=== PATIENT | male | born 1955 | race Caucasian/White ===

== ENCOUNTER → 2020-08-27 08:53 | Outpatient (CLI) | payer BC, SELFPAY ==
--- NOTE | ~2020-08-27 | XR_ITS ---
EXAMINATION: XR thoracic spine 3V DATE: 08/27/2020 09:33 INDICATION: Dorsalgia, unspecified TECHNIQUE: AP, lateral and lateral swimmer's views of the thoracic spine were obtained. COMPARISON: 12/14/2010 FINDINGS: There is subtle S-shaped curvature of the spine. No fracture is identified. The vertebral b nataly heights are maintained. There is mild loss of intervertebral disc space height at multiple levels in the thoracic spine. Bone alignment is normal. IMPRESSION: 1. Moderate thoracic spondylosis without acute findings or significant interval change. Reviewed, dictated and finalized at location A. 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
--- NOTE | ~2020-08-27 | XR_ITS ---
EXAMINATION: XR ribs LT 2V w CXR 2V INDICATION: Left rib pain TECHNIQUE: A frontal view of the chest and 3 views of the left ribs were obtained. COMPARISON: None. FINDINGS: The lungs are free of acute opacities. There is no pleural effusion or pneumothorax. The ca rdiomediastinal silhouette is normal. No displaced rib fracture is identified. There is moderate thor acic spondylosis. IMPRESSION: 1. No acute cardiopulmonary abnormality or evidence of displaced rib fracture. Reviewed, dictated and finalized at location A. UCTION CONSULTANT
== END ==
PROVIDERS: PCP Family Medicine; Visit Provider Family Medicine
DX: M54.9 Dorsalgia, unspecified (principal); M47.894 Other spondylosis, thoracic region
CPT/HCPCS: 71046; 71100; 72072

== ENCOUNTER 2022-05-03 10:19 | Outpatient (CLI) | payer BC, SELFPAY ==
[2022-05-03 18:28] LABS: Hemoglobin A1C 8.5 % (<5.7)
[2022-05-03 18:49] LABS: Alanine Aminotransferase 24 U/L (6-50); Albumin Level 4.5 g/dL (3.5-5.1); Alkaline Phosphatase 60 U/L (38-126); Anion Gap 11 mmol/L (8-16); Aspartate Amino Transferase 23 U/L (17-59); Bilirubin,Total 0.9 mg/dL (0.2-1.3); Blood Urea Nitrogen 12 mg/dL (9-20); Calcium 9.5 mg/dL (8.4-10.2); Carbon Dioxide 22 mmol/L (22-30); Chloride 105 mmol/L (98-107); Estimated Glomerular Filt Rate > 60; Glucose 176 mg/dL (65-110); Potassium 4.2 mmol/L (3.4-5.0); Sodium 138 mmol/L (137-145)
== END 2022-05-03 10:20 | disposition home or self-care (01) ==
LOC: ANHGOSHLAB 10:23
PROVIDERS: PCP Family Medicine; Visit Provider Family Medicine
DX: E11.9 Type 2 diabetes mellitus without complications (principal); I10 Essential (primary) hypertension
CPT/HCPCS: 36415; 80053; 83036

== ENCOUNTER 2023-06-08 16:22 | Emergency (ER) | payer MEDICARE, SELFPAY ==
--- NOTE | ~2023-06-08 | CT_ITS ---
EXAMINATION: CT brain wo con DATE: 06/08/2023 18:26 INDICATION: Headache. Hypertension. TECHNIQUE: Computed tomography (CT) of the head was performed without intravenous contrast. The mA wa s adjusted according to patient size. Iterative reconstruction technique was employed. Exam dose: 68 1.00 mGy-cm total exam DLP. COMPARISON: 10/04/2017 CT brain FINDINGS: No intracranial mass lesion or hemorrhage or cerebrovascular accident, midline shift or mas s effect. Normal ventricular size. No subdural or epidural hematoma. There is calcification of the vertebral arteries, basilar artery and bilateral carotid siphon interna l carotid artery calcification. No fracture or bone destruction of the cranial vault. The mastoid air cells and included paranasal si nuses are normally developed and aerated. IMPRESSION: Cerebral atherosclerosis; no acute intracranial finding Reviewed, dictated and finalized at Location A. Reviewed, dictated and finalized at location A. 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
[2023-06-08 16:26] VITALS: BP 221/99; PULSE 83; RESP 20; TEMP 36.1; O2SAT 100
--- NOTE | 2023-06-08 16:31 | ECG_ITS ---
Measurements Intervals [place] Rate: 77 P: 2 IN: 171 QRS: 2 QRSD: 110 T: 30 QT: 377 QTc: 428 Interpretive Statements SINUS RHYTHM VOLTAGE CRITERIA FOR LVH BORDERLINE ST-T WAVE ABNORMALITY- ANTEROLAT/INF LEADS BASELINE ARTIFACT- II, III BORDERLINE ECG NO PREVIOUS ECG AVAILABLE FOR COMPARISON Electronically Signed On 06-08-2023 19:51:13 BOARD FINISHER by Juan Barba D.O.
[2023-06-08 16:55] LABS: Basophils Percent Auto 0.1 % (0.2-1.2); Eosinophils Absolute Auto 0.1 K/mm3 (0-0.3); Eosinophils Percent Auto 1.5 % (0-4.4); Hematocrit 41.3 % (42.0-52.0); Hemoglobin 14.1 g/dL (14.0-18.0); Immature Granulocyte Absolute 0.03 K/mm3 (0.00-0.031); Immature Granulocyte Percent A 0.4 % (0-0.5); Lymphocytes Absolute Auto 3.09 K/mm3 (0.9-3.2); Lymphocytes Percent Auto 39.2 % (18.3-44.2); Mean Corpuscular HGB Conc 34.1 g/dl (32-36); Mean Corpuscular Hemoglobin 31.8 pg (26-34); Mean Corpuscular Volume 93.2 fl (80-100); Mean Platelet Volume 9.4 fl (7.4-10.4); Monocytes Absolute Auto 0.5 K/mm3 (0.1-0.6); Monocytes Percent Auto 6.5 % (2.6-8.5); Neutrophils Absolute Auto 4.1 K/mm3 (1.3-6.7); Neutrophils Percent Auto 52.3 % (45.5-73.1); Platelet Count Result 236 k/mm3 (150-375); Red Blood Count 4.43 M/mm3 (4.6-6.20); Red Cell Distribution Width 12.2 % (11.5-14.5); White Blood Count 7.9 K/mm3 (4.5-10.0)
[2023-06-08 17:16] LABS: Alanine Aminotransferase 21 U/L (6-50); Albumin Level 4.3 g/dL (3.5-5.1); Alkaline Phosphatase 55 U/L (38-126); Anion Gap 11 mmol/L (8-16); Aspartate Amino Transferase 25 U/L (17-59); Bilirubin,Total 0.7 mg/dL (0.2-1.3); Blood Urea Nitrogen 11 mg/dL (9-20); Calcium 9.5 mg/dL (8.4-10.2); Carbon Dioxide 22 mmol/L (22-30); Chloride 106 mmol/L (98-107); Estimated CRCL calculation 108 ml/min; Estimated Glomerular Filt Rate > 60; Glucose 179 mg/dL (65-110); Sodium 139 mmol/L (137-145)
[2023-06-08 17:28] LABS: Troponin I < 0.012 ng/mL (0.000-0.034)
--- NOTE | 2023-06-08 17:49 | ED.RECABL ---
HPI - Recheck/Abnormal Lab/Rx General Chief Complaint: Recheck/Abnormal Lab/Rx Stated Complaint: high blood pressure Time Seen by Provider: 06/08/23 17:49 Source: patient Mode of arrival: ambulatory Limitations: no limitations History of Present Illness HPI narrative: This is a 67-year-old male that presents to the emergency department for elevated blood pressure reading. Reports he was not feeling well today with a headache. He took his blood pressure and it was quite elevated to 200 systolic. Reports he does not take his blood pressure medication daily. He does not believe he took it today. Denies visual changes, chest pain, shortness of breath, vomiting, or focal numbness or weakness. Related Data Home Medications Medication Instructions Recorded Confirmed amlodipine 5 mg tablet 5 mg PO DAILY 11/08/22 06/08/23 gabapentin 300 mg PO BID 06/08/23 06/08/23 lisinopril 10 1 tablet PO DAILY 06/08/23 06/08/23 mg-hydrochlorothiazide 12.5 mg tablet pregabalin 150 mg capsule (Lyrica) 150 mg PO HS 06/08/23 06/08/23 Allergies Allergy/AdvReac Type Severity Reaction Status Date / Time amoxicillin Allergy Unknown Rash Verified 06/08/23 18:02 Penicillins Allergy Unknown Rash Verified 06/08/23 18:02 hydrocodone AdvReac Intermediate Nausea Verified 06/08/23 18:02 Review of Systems Review of Systems: CONSTITUTIONAL: Denies fever EYES: Denies visual changes CARDIOVASCULAR: Denies chest pain, or edema. RESPIRATORY: Denies dyspnea. GASTROINTESTINAL: Denies vomiting NEUROLOGIC: Reports headache. Denies numbness, or weakness. All systems reviewed & are unremarkable except as noted in HPI and below PMFSH Past Medical History Medical History Chronic low back pain without sciatica Diabetes, polyneuropathy 2008 Dyslipidemia Essential (primary) hypertension Family hx of colon cancer H/O small bowel obstruction Hypogonadism in male Pituitary adenoma Type 2 diabetes mellitus with hyperglycemia, without long-term current use of insulin Vitamin B12 deficiency Family History Family History Father Colon cancer Other Carcinoma of colon Social History Social History Smoking status: Never smoker Second hand tobacco smoke exposure: No Alcohol intake: current Alcohol use details: consumes 2 Rum drinks weekly Substance use: never Substance use type: does not use Lack of Transportation: No Lack of Food: Never True Current Housing: I Have Housing Concerned About Future Housing: No Difficulty Paying Gas/Electric Bills: No Difficulty Paying for Meds: Decline to Answer Currently 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ion: Decline to Answer Difficulty w/ Childcare or Family Care: No Living arrangements: with family Occupation/Education: occupation Gender identity (if verbalized by the patient): Male Sexual Orientation (if Verbalized by the Patient): Straight or Heterosexual Agree to blood products: Yes Exam Narrative: GENERAL: Well-appearing, well-nourished, and in no acute distress. HEAD: Normocephalic, atraumatic. EYES: PERRLA and EOMI. ENT: Nares clear, no rhinorrhea or epistaxis. Mucous membranes moist. Oropharynx without tonsillar hypertrophy exudate or other lesions. Bilateral TMs pearly stack non-bulging NECK: Supple. No adenopathy or masses. CHEST: Clear to auscultation. No respiratory distress. No wheezes rales or rhonchi HEART: Regular rate and rhythm. No murmur heard. Normal peripheral pulses. EXTREMITIES: Normal range of motion. No edema. Strength equal in bilateral upper and lower extremities (5/5) SKIN: Warm, dry, no rash. NEURO: No focal deficits. Alert and oriented x3. Cranial nerves 2-12 grossly intact PSYCH: Normal mood and affect Course Course Emergency Course: Patient updated on workup and agrees with plan
[2023-06-08 18:01] VITALS: BP 196/97; PULSE 76; RESP 15; O2SAT 99
[2023-06-08] MEDS: amLODIPine BESYLATE 5 MG TABLET PO (18:43)
[2023-06-08] MEDS: lisinopriL 20 MG TABLET PO (18:43)
[2023-06-08 18:44] VITALS: BP 191/94; PULSE 74; RESP 21; O2SAT 99
[2023-06-08 19:37] VITALS: BP 172/92; PULSE 70; RESP 15; O2SAT 98
[2023-06-08] MEDS: ACETAMINOPHEN 500 MG TABLET 1000 MG PO (20:37)
[2023-06-08] MEDS: diphenhydrAMINE HCl CAP 25 MG CAPSULE PO (20:53)
[2023-06-08] MEDS: METOCLOPRAMIDE HCL 10 MG TABLET PO (20:53)
[2023-06-08 20:55] VITALS: BP 171/89; PULSE 73; RESP 17; O2SAT 99
== END 2023-06-08 21:29 | disposition home or self-care (01) ==
PROVIDERS: Emergency Medicine; Emergency Provider Physician Assistant; PCP Family Medicine
DX: I10 Essential (primary) hypertension (principal); T46.5X6A Underdosing of other antihypertensive drugs, initial encounter; Z91.128 Patient's intentional underdosing of medication regimen for other reason; E11.9 Type 2 diabetes mellitus without complications; E78.5 Hyperlipidemia, unspecified; E53.8 Deficiency of other specified B group vitamins; Z79.84 Long term (current) use of oral hypoglycemic drugs; I67.2 Cerebral atherosclerosis; R94.31 Abnormal electrocardiogram [ECG] [EKG]
CPT/HCPCS: 36415; 70450; 80053; 84484; 85025; 93005; 96374; 96375; 99284; A9270; J1200; J2765

== ENCOUNTER → 2023-07-24 12:28 | Outpatient (CLI) | payer MEDICARE, SELFPAY ==
--- NOTE | ~2023-07-24 | XR_ITS ---
XR lumbar spine min 4V DATE: 07/24/2023 12:52 INDICATION: Low back pain radiating down both legs TECHNIQUE: AP, lateral, coned lateral lumbosacral views, bilateral oblique views COMPARISON: None FINDINGS: Minimal lumbar dextroscoliosis. There is moderately prominent degenerative disease and prominent spurring throughout the lumbar and l umbosacral spine. No fracture or bone destruction, spondylolysis or spondylolisthesis is evident. The sacroiliac joints are intact. IMPRESSION: Moderately prominent degenerative disc disease throughout the lumbar spine Minimal dextroscoliosis Reviewed, dictated and finalized at location L. ITY ASSURANCE SPECIALIST IMPRESSION: Moderately prominent degenerative disc disease throughout the lumba r spine Minimal dextroscoliosis
== END ==
PROVIDERS: PCP Family Medicine; Visit Provider Family Medicine
DX: M54.50 Low back pain, unspecified (principal); M51.36 Other intervertebral disc degeneration, lumbar region
CPT/HCPCS: 72110

== ENCOUNTER 2023-08-31 08:00 | Outpatient (RCR) | payer MEDICARE, SELFPAY ==
--- NOTE | 2023-08-15 17:10 | OPREHPOC ---
Outpatient Therapy Plan of Care This is a Multidisciplinary Plan of Care that may contain components documented by all disciplines (PT, OT, and ST.) PT Problem 1 PT Problem #1 Knowledge Deficit PT Goal 1 Goal Pt to be IND with issued HEP Target Visit 8 PT Problem 2 PT Problem #2 Pain PT Goal 1 Goal Pt to report back pain no greater than 3/10 in the last week. Target Visit 8 PT Goal 2 Goal Pt to report 50% improvement in daily achy sensation Target Visit 8 PT Problem 3 PT Problem #3 Impaired Range of Motion PT Goal 1 Goal Pt to demonstrate no resistance with passive hip ROM Target Visit 8 PT Problem 4 PT Problem #4 Impaired Functional Mobil PT Goal 1 Goal Pt to be able to bend and grab golf ball out of hole. Target Visit 8 PT Goal 2 Goal Pt to be able to lift and carry 30lb from ground level without an increase in pain Target Visit 8
--- NOTE | 2023-08-15 17:10 | PTOPEVAL1 ---
Assessment and note entered by Fransico Vogel, PT, DPT Evaluation Information Assessment Status Evaluation Diagnosis low back pain Onset chronic Subjective Information Pt reports chronic low back pain over the last 25 years, he reports no back pain ~90% of the time. He reports daily tightness that feels limiting. He states he was standing upright about a month ago a felt a crunch and had debilitating spasms and had to stay in bed for about 2 days. He states this has happened before but is always random, a couple of times a year. He states the pain is centralized to his low back. 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 Reported Pain Level Pain Score 1: Self Report Assessment PT Clinical Summary Pradeep presents to therapy today for his initial evaluation with a diagnosis of chronic low back pain. Today he demonstrates decreased lumbar mobility into flexion and extension, decreased hip mobility dory, poor standing posture, and poor core strength. He reports decreased functional mobility d/t decreased mobility and fear avoidance behaviors. Skilled therapy services are indicated to address the deficits noted above, to improve lumbar mobility, and to promote improved movement mechanics. Plan of Care Interventions Electrical Stimulation,Gait Training,Hot Pack/Cold Pack,Manual Therapy,Mechanical Traction,Neuro Re- education,Patient/Caregiver Educati,Therapeutic Activities,Therapeutic Exercise PT Services Indicated Yes Treatment Frequency and 2x/wk for 8 visits Duration These treatments will address the objective and functional deficits as defined above. The patient will be advanced safely and appropriately in order for the patient to progress towards his/her prior level of function. Additional exercises will be introduced and as well as a comprehensive home exercise program upon discharge, if needed, ?to ensure carryover of functional gains achieved in the clinic. This treatment plan has been reviewed and agreement upon by the patient.
--- NOTE | 2023-08-22 08:13 | PCPTNOTE ---
Patient called to cancel this date due to conflicting appointment.
--- NOTE | 2023-09-05 09:58 | PCPTNOTE ---
Patient called to cancel all remaining appointments until reevaluation per request.
--- NOTE | 2023-09-25 14:16 | PCPTNOTE ---
Patient called & cancelled scheduled appointment this date due to having too much going on to commit to therapy. Called and LVM asking pt if he would like to be discharged or reschedule. Have not heard from him at this time.
--- NOTE | 2023-10-01 09:13 | PTOPDC ---
Assessment and note entered by Fransico Vogel, PT, DPT Evaluation Information Assessment Status Discharge - Pt Not Present Diagnosis low back pain Onset chronic Subjective Information Pt called and cancelled remaining appointments and reports he is too busy to focus on therapy at this time. Called and LVM asking if he wanted to reschedule for a later time, have not heard from pt since. Assessment PT Clinical Summary Pradeep completed 4 visits of skilled therapy from to 08/31/23. He will be discharged at this time. If he needs additional therapy at a later date he will need a new order.
== END 2023-10-01 10:06 | disposition home or self-care (01) ==
LOC: ANHGOSHPT 08:00
PROVIDERS: PCP Family Medicine; Visit Provider Family Medicine
DX: M54.50 Low back pain, unspecified (principal); M47.816 Spondylosis without myelopathy or radiculopathy, lumbar region; G89.29 Other chronic pain
CPT/HCPCS: 97016; 97110; 97161; 97530

== ENCOUNTER 2023-09-18 00:34 | Day surgery (SDC) | payer MEDICARE, SELFPAY ==
[2023-08-30 11:05] VITALS: BMI 40.4
--- NOTE | 2023-09-14 13:58 | SUR.PREOP ---
Patient called regarding upcoming procedure. Reviewed preop instructions, appointment times, and procedure prep.
--- NOTE | 2023-09-17 13:57 | PM.HPGS ---
History of Present Illness History of Present Illness Consent: Risks, benefits, and alternatives have been discussed and questions answered. Patient agrees to proceed with procedure. Chief complaint: neoplasm screening Narrative: Paul Faith is a 67 year old male referred for colon cancer screening. Review of Systems Review of Systems: All systems reviewed & are unremarkable except as noted in HPI and below PMFSH Past Medical History Medical History Chronic low back pain without sciatica Degenerative joint disease (DJD) of lumbar spine Diabetes, polyneuropathy 2008 Dyslipidemia Essential (primary) hypertension Family hx of colon cancer H/O small bowel obstruction Hypogonadism in male Pituitary adenoma Type 2 diabetes mellitus with hyperglycemia, without long-term current use of insulin Vitamin B12 deficiency Family History Family History Father Colon cancer Other Carcinoma of colon Social History Social History Smoking status: Never smoker Second hand tobacco smoke exposure: No Alcohol intake: current Drinks per week: 1 Alcohol use details: consumes 2 Rum drinks weekly Substance use: never Substance use type: does not use Lack of Transportation: No Lack of Food: Never True Current Housing: I Have Housing Concerned About Future Housing: No Difficulty Paying Gas/Electric Bills: No Difficulty Paying for Meds: Decline to Answer Currently 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ion: Decline to Answer Difficulty w/ Childcare or Family Care: No Living arrangements: alone Occupation/Education: occupation Gender identity (if verbalized by the patient): Male Sexual Orientation (if Verbalized by the Patient): Straight or Heterosexual Spiritual care concerns: No Agree to blood products: Yes Meds Home Medications and Allergies Home Medications Medication Instructions Recorded Confirmed Type flash glucose scanning reader #1 ea 05/03/22 08/30/23 Rx (FreeStyle Javad 2 [place]) flash glucose sensor (FreeStyle #1 ea 02/27/23 08/30/23 Rx Javad 2 Sensor kit) amlodipine 5 mg tablet 5 mg PO DAILY #90 tabs 07/24/23 08/30/23 Rx gabapentin 300 mg capsule 300 mg PO QID #360 caps 07/24/23 08/30/23 Rx lisinopril 20 1 tablet PO DAILY #90 tabs 07/24/23 08/30/23 Rx mg-hydrochlorothiazide 25 mg tablet simvastatin 5 mg tablet 5 mg PO DAILY #90 tabs 07/24/23 08/30/23 Rx sitagliptin phos 50 mg-metformin 2 tablet PO DAILY #180 tabs 07/24/23 08/30/23 Rx ER 1,000 mg tablet,extend rel 24h mp (Janumet XR) cyanocobalamin (vitamin B-12) 1,000 mcg IM WEEKLY #4 vials 08/08/23 08/30/23 Rx 1,000 mcg/mL injection solution ergocalciferol (vitamin D2) 1,250 1,250 mcg PO WEEKLY #12 caps 08/08/23 08/30/23 Rx mcg (50,000 unit) capsule insulin degludec 100 unit/mL (3 75 unit (0.75 mL) subcut DAILY #45 08/08/23 08/30/23 Rx mL) subcutaneous pen (Tresiba syringes FlexTouch U-100 insulin) pen needle, diabetic 31 gauge x #100 ea 08/09/23 08/30/23 Rx 5/16 (1st Tier Unifine Pentips) syringe with needle, safety 3 mL #10 ea 08/09/23 08/30/23 Rx 25 gauge x 1 (BD Integra Syringe) Allergies Allergy/AdvReac Type Severity Reaction Status Date / Time amoxicillin Allergy Unknown Rash Verified 08/30/23 11:03 Penicillins Allergy Unknown Rash Verified 08/30/23 11:03 hydrocodone AdvReac Intermediate Nausea Verified 08/30/23 11:03 Exam Const: General: alert Nutritional Appearance: obese Orientation/consciousness: patient oriented x3 Resp: Auscultation: clear to auscultation bilaterally Cardio: Rhythm: regular rhythm GI: GI Palp: Yes Soft to palpation and No Tenderness to palpation present (GI) Neuro: General: patient oriented x3 Assessment and Plan Assessment and plan (1) Family hx of colon cancer: Code(s): Z80
[2023-09-18 06:43] VITALS: BP 168/88; PULSE 89; RESP 18; TEMP 36.7; O2SAT 96; BMI 40.9
[2023-09-18] MEDS: LACTATED RINGERS 1,000 ML 150 ML IV CONT (07:12)
[2023-09-18 07:17] LABS: Glucose Point of Care 146 mg/dl (65-105)
--- NOTE | 2023-09-18 07:29 | WPDANESEPPF ---
Anes - Initial Pre Proc Eval Procedure: Operation Date: 09/18/23 08:00 Proposed Procedures p Screening Colonoscopy - Kieran Gallagher MD Date/Time: 09/18/23 07:29 Surgeon: Kieran Gallagher MD Pre Op Diagnosis: neoplasm screening Patient Data Age: 67 Gender: M Height: 1.88 m Weight: 144.7 kg Last Vital Signs Temp 98.1 F 09/18/23 06:43 Pulse 89 09/18/23 06:43 Resp 18 09/18/23 06:43 BP 168/88 H 09/18/23 06:43 Pulse Ox 96 09/18/23 06:43 O2 Del Method Room Air 09/18/23 06:43 Allergies Allergy/AdvReac Type Severity Reaction Status Date / Time amoxicillin Allergy Unknown Rash Verified 08/30/23 11:03 Penicillins Allergy Unknown Rash Verified 08/30/23 11:03 hydrocodone AdvReac Intermediate Nausea Verified 08/30/23 11:03 Home Medications Medication Instructions Recorded Confirmed Type flash glucose scanning reader #1 ea 05/03/22 08/30/23 Rx (FreeStyle Javad 2 [place]) flash glucose sensor (FreeStyle #1 ea 02/27/23 08/30/23 Rx Javad 2 Sensor kit) amlodipine 5 mg tablet 5 mg PO DAILY #90 tabs 07/24/23 08/30/23 Rx gabapentin 300 mg capsule 300 mg PO QID #360 caps 07/24/23 08/30/23 Rx lisinopril 20 1 tablet PO DAILY #90 tabs 07/24/23 08/30/23 Rx mg-hydrochlorothiazide 25 mg tablet simvastatin 5 mg tablet 5 mg PO DAILY #90 tabs 07/24/23 08/30/23 Rx sitagliptin phos 50 mg-metformin 2 tablet PO DAILY #180 tabs 07/24/23 08/30/23 Rx ER 1,000 mg tablet,extend rel 24h mp (Janumet XR) cyanocobalamin (vitamin B-12) 1,000 mcg IM WEEKLY #4 vials 08/08/23 08/30/23 Rx 1,000 mcg/mL injection solution ergocalciferol (vitamin D2) 1,250 1,250 mcg PO WEEKLY #12 caps 08/08/23 08/30/23 Rx mcg (50,000 unit) capsule insulin degludec 100 unit/mL (3 75 unit (0.75 mL) subcut DAILY #45 08/08/23 08/30/23 Rx mL) subcutaneous pen (Tresiba syringes FlexTouch U-100 insulin) pen needle, diabetic 31 gauge x #100 ea 08/09/23 08/30/23 Rx 5/16 (1st Tier Unifine Pentips) syringe with needle, safety 3 mL #10 ea 08/09/23 08/30/23 Rx 25 gauge x 1 (BD Integra Syringe) Laboratory Tests 09/18/23 07:15 POC Capillary Glucose 146 H mg/dl (65-105) Patient hx anesthesia problems: none Family hx anesthesia problems: none Results Review: All pre-operative results and documents have been reviewed as part of the pre-operative evaluation. [facility] Past Medical History Medical History (Updated 08/23/23 @ 14:59 by Adalberto Snell MD) Chronic low back pain without sciatica Degenerative joint disease (DJD) of lumbar spine Diabetes, polyneuropathy 2007 Dyslipidemia Essential (primary) hypertension Family hx of colon cancer H/O small bowel obstruction Hypogonadism in male Pituitary adenoma Type 2 diabetes mellitus with hyperglycemia, without long-term current use of insulin Vitamin B12 deficiency Family History Family History Father Colon cancer Other Carcinoma of colon Social History Social History Smoking status: Never smoker Second hand tobacco smoke exposure: No Alcohol intake: current Drinks per week: 1 Alcohol use details: consumes 2 Rum drinks weekly Substance use: never Substance use type: does not use Lack of Transportation: No Lack of Food: Never True Current Housing: I Have Housing Concerned About Future Housing: No Difficulty Paying Gas/Electric Bills: No Difficulty Paying for Meds: Decline to Answer Currently 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ion: Decline to Answer Difficulty w/ Childcare or Family Care: No Living arrangements: alone Occupation/Education: occupation Gender identity (if verbalized by the patient): Male Sexual Orientation (if Verbalized by the Patient): Straight or Heterosexual Spiritual care concerns: No Agree to blood products: Yes Anes - Eval Final PreProcedure Day of Procedure 09/17
[2023-09-18 08:07] VITALS: BP 111/68; PULSE 74; RESP 17; O2SAT 97
[2023-09-18 08:17] VITALS: BP 120/70; PULSE 78; RESP 17; O2SAT 97
[2023-09-18 08:27] VITALS: BP 132/73; PULSE 77; RESP 18; O2SAT 97
== END 2023-09-18 08:32 | disposition home or self-care (01) ==
PROVIDERS: PCP Family Medicine; Visit Provider Internal Medicine Gastroenterology
PROC: 0DJD8ZZ Inspection of Lower Intestinal Tract, Via Natural or Artificial Opening Endoscopic (ICD-10-PCS; CPT 45378; principal; 2023-09-18 08:00)
DX: Z12.11 Encounter for screening for malignant neoplasm of colon (principal); K57.30 Diverticulosis of large intestine without perforation or abscess without bleeding; K63.3 Ulcer of intestine; D12.2 Benign neoplasm of ascending colon; E11.42 Type 2 diabetes mellitus with diabetic polyneuropathy; E11.649 Type 2 diabetes mellitus with hypoglycemia without coma; E53.8 Deficiency of other specified B group vitamins; Z86.010 Personal history of colon polyps; F10.90 Alcohol use, unspecified, uncomplicated; Z79.84 Long term (current) use of oral hypoglycemic drugs; Z79.4 Long term (current) use of insulin; Z79.899 Other long term (current) drug therapy; Z80.0 Family history of malignant neoplasm of digestive organs; E66.01 Morbid (severe) obesity due to excess calories; Z68.41 Body mass index [BMI] 40.0-44.9, adult
CPT/HCPCS: 45380; 45385; 45381; 82948; 88305; J7120

== ENCOUNTER 2024-02-20 10:09 | Outpatient (CLI) | payer MEDICARE, SELFPAY ==
[2024-02-20 12:35] LABS: Basophils Percent Auto 0.3 % (0.2-1.2); Eosinophils Absolute Auto 0.1 K/mm3 (0-0.3); Eosinophils Percent Auto 1.9 % (0-4.4); Hematocrit 40.6 % (42.0-52.0); Hemoglobin 13.6 g/dL (14.0-18.0); Immature Granulocyte Absolute 0.02 K/mm3 (0.00-0.031); Immature Granulocyte Percent A 0.3 % (0-0.5); Mean Corpuscular HGB Conc 33.5 g/dl (32-36); Mean Corpuscular Volume 95.5 fl (80-100); Monocytes Absolute Auto 0.6 K/mm3 (0.1-0.6); Monocytes Percent Auto 7.8 % (2.6-8.5); Neutrophils Absolute Auto 3.9 K/mm3 (1.3-6.7); Neutrophils Percent Auto 52.7 % (45.5-73.1); Platelet Count Result 301 k/mm3 (150-375); Red Blood Count 4.25 M/mm3 (4.6-6.20); Red Cell Distribution Width 12.6 % (11.5-14.5); White Blood Count 7.3 K/mm3 (4.5-10.0)
[2024-02-20 13:12] LABS: Alanine Aminotransferase 22 U/L (6-50); Albumin Level 4.3 g/dL (3.5-5.1); Alkaline Phosphatase 54 U/L (38-126); Anion Gap 10 mmol/L (4-12); Aspartate Amino Transferase 34 U/L (17-59); Bilirubin,Total 0.9 mg/dL (0.2-1.3); Blood Urea Nitrogen 13 mg/dL (9-20); Calcium 9.3 mg/dL (8.4-10.2); Carbon Dioxide 25 mmol/L (22-30); Chloride 104 mmol/L (98-107); Cholesterol 171 mg/dL (0-200); Estimated Glomerular Filt Rate > 60; Glucose 152 mg/dL (65-110); HDL Direct 35 mg/dL; Potassium 4.6 mmol/L (3.4-5.0); Sodium 139 mmol/L (137-145); Triglycerides 106 mg/dL (<150)
[2024-02-20 13:23] LABS: LDL Cholesterol Direct 112 mg/dL
[2024-02-20 15:11] LABS: Hemoglobin A1C 9.1 % (<5.7)
[2024-02-20 15:17] LABS: Vitamin D 25 Hydroxy 53.6 ng/mL
== END 2024-02-20 10:10 | disposition home or self-care (01) ==
PROVIDERS: PCP Family Medicine; Visit Provider Nurse Practitioner Family
DX: E78.5 Hyperlipidemia, unspecified (principal); I10 Essential (primary) hypertension; E11.9 Type 2 diabetes mellitus without complications; E55.9 Vitamin D deficiency, unspecified
CPT/HCPCS: 36415; 80053; 80061; 82306; 83036; 85025

== ENCOUNTER 2024-03-27 07:54 | Outpatient (CLI) | payer MEDICARE, SELFPAY ==
--- NOTE | 2024-04-15 19:18 | WPDSLEEPSTUD ---
Sleep Study Date of Study: 03/27/24 Ordering Provider: Roverto Snell MD Interpreting Physician: Mildred Marrero DO Sleep Study Type: Split Polysomnogram Height: 1.88 m Weight: 144.242 kg Body Mass Index: 40.8 Neck Circumference (inches): 22 Peytona: 11 Reason for Sleep Study Frequent nighttime awakenings Sleep History The patient is a 68 year old male that had a sleep study ordered by his primary care physician for evaluation of sleep apnea. The patient frequently awakens from sleep short of breath. He occasionally awakens at night with cough. He frequently snores loudly enough that others complain. He with a has trouble sleeping when he has a cold. He frequently wakes up gasping for air throughout the night. He occasionally has breathing problems at night observed by himself or others. He denies sweating excessively at night. He denies having heart palpitations or irregular heartbeats during the night. Occasionally falls asleep during the day but never while driving a car he denies sleep paralysis and cataplexy. He rarely has trouble at school or work due to sleepiness score 0 he rarely experiences vivid dreamlike scenes upon awakening or falling asleep year he denies feeling afraid of going to sleep. He occasionally has nightmares and occasionally remembers his dreams. He rarely has thoughts racing through his mind. He denies feeling sad, depressed or anxious. He denies having muscular tension. He denies noticing parts of his body jerk. He denies kicking during the night. He frequently has aching feelings in his legs and constantly experiences leg pain during the night. He denies with waking up in the morning with jaw pain. He is occasionally bothered by pain during the day and is constantly bothered by pain during the night. He frequently wakes up feeling stiff in the morning. He rarely wakes up with sore enough of will do occasionally wakes up with pain in his spine and joints. The patient goes to bed between 7:30-8 a.m. on both weekdays and weekends. It takes him a few minutes to fall asleep. He wakes up 6-7 times throughout the night for unknown reasons and the amount of time it takes for him to fall back asleep is variable. He wakes up at 7:00 a.m. on both weekdays and weekends. He typically stays in bed for 15 minutes after waking up in the morning a her are of unknown. He denies consuming any caffeinated beverages and I the bedtime. He denies and on physical exercise before bedtime. He denies reading before falling asleep. He will watch television before falling asleep. He seldom takes naps in the afternoon or the evening. He denies consuming caffeinated beverages during the day. He consumes 2 alcoholic beverages per week. He denies tobacco and recreational drug use. [facility] Past Medical History Medical History Chronic low back pain without sciatica Degenerative joint disease (DJD) of lumbar spine Dyslipidemia Essential (primary) hypertension Family hx of colon cancer H/O small bowel obstruction Hypogonadism in male Pituitary adenoma Type 2 diabetes mellitus with hyperglycemia, without long-term current use of insulin Vitamin B12 deficiency Family History Family History Father Colon cancer Other Carcinoma of colon Social History Social History Smoking status: Never smoker Second hand tobacco smoke exposure: No Alcohol intake: current Drinks per week: 1 Alcohol use details: consumes 2 Rum drinks weekly Substance use: never Substance use type: does not use Lack of Transportation: No Lack of Food: Never True Current Housing: I Have Housing Concerned About Future Housing: No Difficulty Paying Gas/Electric Bills: No Difficulty Paying for Meds: Decline to Answer Currently 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
[2024-04-15 19:19] VITALS: BMI 40.8
== END 2024-03-28 06:27 | disposition home or self-care (01) ==
PROVIDERS: PCP Family Medicine; Visit Provider Family Medicine
DX: R40.0 Somnolence (principal); R29.818 Other symptoms and signs involving the nervous system; G47.33 Obstructive sleep apnea (adult) (pediatric)
CPT/HCPCS: 95811

== ENCOUNTER 2024-05-12 09:54 | Outpatient (CLI) | payer MEDICARE, SELFPAY ==
[2024-05-12 15:08] LABS: Hemoglobin A1C 9.7 % (<5.7)
== END 2024-05-12 09:55 | disposition home or self-care (01) ==
LOC: ANHGOSHLAB 09:55
PROVIDERS: PCP Family Medicine; Visit Provider Nurse Practitioner Family
DX: E11.9 Type 2 diabetes mellitus without complications (principal); G25.81 Restless legs syndrome
CPT/HCPCS: 36415; 82728; 83036

== ENCOUNTER 2024-06-20 10:14 | Outpatient (CLI) | payer MEDICARE, SELFPAY ==
[2024-06-20 14:37] LABS: Basophils Percent Auto 0.2 % (0.2-1.2); Eosinophils Absolute Auto 0.2 K/mm3 (0-0.3); Eosinophils Percent Auto 2.5 % (0-4.4); Hematocrit 43.5 % (42.0-52.0); Hemoglobin 14.5 g/dL (14.0-18.0); Immature Granulocyte Absolute 0.02 K/mm3 (0.00-0.031); Immature Granulocyte Percent A 0.2 % (0-0.5); Lymphocytes Absolute Auto 3.01 K/mm3 (0.9-3.2); Lymphocytes Percent Auto 35.6 % (18.3-44.2); Mean Corpuscular HGB Conc 33.3 g/dl (32-36); Mean Corpuscular Hemoglobin 31.7 pg (26-34); Mean Platelet Volume 10.1 fl (7.4-10.4); Monocytes Absolute Auto 0.7 K/mm3 (0.1-0.6); Monocytes Percent Auto 8.5 % (2.6-8.5); Neutrophils Absolute Auto 4.5 K/mm3 (1.3-6.7); Platelet Count Result 273 k/mm3 (150-375); Red Blood Count 4.58 M/mm3 (4.6-6.20); Red Cell Distribution Width 12.3 % (11.5-14.5); White Blood Count 8.5 K/mm3 (4.5-10.0)
[2024-06-20 15:17] LABS: Alanine Aminotransferase 23 U/L (6-50); Albumin Level 4.6 g/dL (3.5-5.1); Alkaline Phosphatase 52 U/L (38-126); Anion Gap 5 mmol/L (4-12); Aspartate Amino Transferase 37 U/L (17-59); Bilirubin,Total 0.9 mg/dL (0.2-1.3); Blood Urea Nitrogen 16 mg/dL (9-20); Calcium 9.5 mg/dL (8.4-10.2); Carbon Dioxide 27 mmol/L (22-30); Chloride 104 mmol/L (98-107); Cholesterol 167 mg/dL (0-200); Estimated Glomerular Filt Rate > 60; Glucose 253 mg/dL (65-110); HDL Direct 38 mg/dL; Potassium 4.8 mmol/L (3.4-5.0); Sodium 136 mmol/L (137-145); Triglycerides 123 mg/dL (<150)
[2024-06-20 15:28] LABS: LDL Cholesterol Direct 98 mg/dL
[2024-06-20 15:43] LABS: Hemoglobin A1C 9.9 % (<5.7)
== END 2024-06-20 10:15 | disposition home or self-care (01) ==
LOC: ANHGOSHLAB 10:15
PROVIDERS: PCP Family Medicine; Visit Provider Nurse Practitioner Family
DX: E78.5 Hyperlipidemia, unspecified (principal); I10 Essential (primary) hypertension; E11.40 Type 2 diabetes mellitus with diabetic neuropathy, unspecified; G25.81 Restless legs syndrome; G47.33 Obstructive sleep apnea (adult) (pediatric); M25.511 Pain in right shoulder
CPT/HCPCS: 36415; 80053; 80061; 83036; 85025

== ENCOUNTER 2024-07-02 09:09 | Outpatient (CLI) | payer MEDICARE, SELFPAY ==
--- NOTE | ~2024-07-02 | US_ITS ---
EXAMINATION: US arterial ankle brachial ind DATE: 07/02/2024 10:37 INDICATION: Other specified symptoms and signs involving the circulatory system. Claudication. TECHNIQUE: Segmental pressures and plethysmographic and Doppler waveforms of the brachial and lower e xtremity arteries were obtained. COMPARISON: None. FINDINGS: Right and left brachial artery pressures of 143 mm Hg and 157 mm Hg, respectively, are concordant (no rmal difference <= 30 mmHg). The right ankle-brachial index (ASHANTI) is 1.03 (normal >= 0.9-1.0). The right great toe-brachial index (TBI) is 0.55 (normal >= 0.65). Arterial Doppler waveforms are biphasic with brisk systolic upstrokes at both right posterior tibial and dorsalis pedis arteries. The left ASHANTI is 1.19. The left TBI is 0.55. Arterial Doppler waveforms are monophasic at the left pos terior tibial artery and biphasic at the left dorsalis pedis artery, both with brisk systolic upstrok es. IMPRESSION: 1. Mild arterial occlusive disease to bilateral lower limbs with normal bilateral ABIs but mildly dec reased bilateral TBIs. Reviewed, dictated and finalized at location A. MENTATION WRITER IMPRESSION: 1. Mild arterial occlusive disease to bilateral lower limbs with normal bilater al ABIs but mildly decreased bilateral TBIs.
== END 2024-07-02 09:10 | disposition home or self-care (01) ==
PROVIDERS: PCP Family Medicine; Visit Provider Nurse Practitioner Family
DX: R09.89 Other specified symptoms and signs involving the circulatory and respiratory systems (principal); I73.9 Peripheral vascular disease, unspecified
CPT/HCPCS: 93922

== ENCOUNTER 2024-08-04 16:19 | Outpatient (CLI) | payer MEDICARE, SELFPAY ==
[2024-08-04 17:25] LABS: Hemoglobin A1C 9.9 % (<5.7)
--- OUTSIDE RECORDS SUMMARY | 2024-08-07 14:44 | XMS_ITS | Encounter Summary ---
Author Organization [facility] Address [address] [facility] Attn: [place] [address] Care Team Providers Care Magnetic Locater Name Role Phone Unavailable Primary Care Provider Unavailabl e Encounter Details Date Type Department Care Team (Late st Contact Info) Description 02/04/1991 Outpatient Historical Roel Medrano MD [address] 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
--- OUTSIDE RECORDS SUMMARY | 2024-08-07 14:44 | XMS_ITS | Encounter Summary ---
Author Organization [facility] Address [address] [facility] Attn: Epic [place] [address] Care Team Providers Care Accredited Legal Secretary Name Role Phone Unavailable Primary Care Provider Unavailabl e Encounter Details Date Type Department Care Team (Late st Contact Info) Description 11/07/1991 Outpatient Historical Roel Medrano MD [address] 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
--- OUTSIDE RECORDS SUMMARY | 2024-08-07 14:44 | XMS_ITS | Encounter Summary ---
Author Organization [facility] Address [address] [facility] Attn: Epic [place] [address] Care Team Providers Care Patternmaker Plaster And Plastic Name Role Phone Unavailable Primary Care Provider Unavailabl e Encounter Details Date Type Department Care Team (Late st Contact Info) Description 09/26/1993 Outpatient Historical Roel Medrano MD [address] [facility] [address] [place] [address] Social History Tobacco Use Types Packs/Day Years Used Date Smoking Tobacco: Never Assessed Sex and Gender Information Value Date Recorded Sex Assigned at Not on file Legal Sex Male 5:24 AM CIRCULATION REPRESENTATIVE Gender Identity Not on file Sexual Orientation Not on file documented as of this encounter Plan of Treatment Not on file documented as of this encounter Visit Diagnoses Not on filedocumented in this encounter
--- OUTSIDE RECORDS SUMMARY | 2024-08-07 14:44 | XMS_ITS | Encounter Summary ---
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
--- OUTSIDE RECORDS SUMMARY | 2024-08-07 14:44 | XMS_ITS | Clinical Summary ---
Author Organization [facility] Address [facility] [facility] [address] [place] [address] Care Team Providers Care Vault Service Mechanic Name Role Phone Greg Sen SIEBEL DEVELOPER Primary Care Provider [phone] Encounters Date Type Department Care Team Description 07/25/2024 2:23 PM PUNCHBOARD FILLING MACHINE OPERATOR - 07/25/2024 11:59 PM PUNCHBOARD FILLING MACHINE OPERATOR Hospital Encounter [facility] [address] [place] [address] Greg Sen FNP Discharge Disposition: Home or Self Care (Routine Discharge) 07/25/2024 Travel from Last 3 Months Social History Tobacco Use Types Packs/Day Years Used Date Smoking Tobacco: Never Assessed Comments Unknown Sex and Gender Information Value Date Recorded Sex Assigned at Not on file Legal Sex Unknown 06/25/2024 1:42 PM PUNCHBOARD FILLING MACHINE OPERATOR Gender Identity Not on file Sexual Orientation Not on file Plan of Treatment Health Maintenance Due Date Last Done Comments Colorectal Cancer Screening Colonoscopy (10 Years) 1957 Hepatitis C 12/26/1975 Mammogram Screening 1997 Zoster Vaccines (1 of 2) 12/26/2007 Annual Medicare Wellness Visit 2022 Dexa Scan (General) 2022 Pneumococcal Vaccine: 65+ Years (1 of 1 - PCV) 2022 COVID-19 Vaccine (3 - 2023-2 5 season) 2024 11/02/2020, 10/11/2020 Influenza Adult (#1) 2024 07/24/2023, 09/24/2019 RSV Immunization or 60+ Years (1 - 1-dose 75+ series) 2032 DTaP, Tdap and Td Vaccines ( 2 - Td or Tdap) 01/06/2034 01/07/2024 Meningococcal Vaccine Aged Out No rogelio salas eligible based on patient's age to complete this topic RSV Immunizations Under 20 Months Aged Out No longer eligible b ased on patient's age to complete this topic Procedures Procedure Name Priority Date/Time Associated Diagnosis Comments MRI SHOULDER RT WO CON Routine 07/25/2024 3:02 PM PUNCHBOARD FILLING MACHINE OPERATOR Pain in right shoulder from Last 3 Months Results * MRI SHOULDER RT WO CON (07/25/2024 3:02 PM PUNCHBOARD FILLING MACHINE OPERATOR) Anatomical Region Laterality Modality Shoulder Magnetic Resonan ce 07/25/2024 3:20 PM PUNCHBOARD FILLING MACHINE OPERATOR Impressions 07/25/2024 3:38 PM PUNCHBOARD FILLING MACHINE OPERATOR IMPRESSION: Full-thickness tear at the insertion of supraspinatus measures 14 mm in AP dimension, 13 mm of retraction. This communicates with a partial articular sided tear of posterior infraspinatus insertion which measures 7 x 4 mm, and involves approximately 50% tendon thickness. Small partial tear at the superior bundle insertion of subscapularis. Long head biceps perched medially at the groove entrance. Associated tendinosis. Findings concerning for subacromial impingement, including spurring and narrowing and moderate bursitis. Mild supraspinatus and infraspinatus atrophy. Ordered By: GREG SEN Interpreted By: Joshua Ga, 07/25/2024 3:20 PM Narrative 07/25/2024 3:38 PM PUNCHBOARD FILLING MACHINE OPERATOR [facility] [place] [address] EXAMINATION: MRI RIGHT SHOULDER WITHOUT CONTRAST EXAM DATE: 07/25/2024 2:40 PM REASON FOR EXAM: ??pain in right shoulder ? Pain and decreased range of motion COMPARISON: None TECHNIQUE: Multisequence multiplanar imaging of the shoulder without intravenous contrast. FINDINGS: Moderate soft tissue swelling surrounding the joint. ROTATOR CUFF: Mild supraspinatus and infraspinatus atrophy. Full-thickness tear at the insertion of supraspinatus measures 14 mm in AP dimension, 13 mm of retraction. This communicates with a partial articular sided tear of posterior infraspinatus insertion which measures 7 mm in AP dimension, 14 mm medial to lateral, and involves approximately 50% tendon thickness. Small partial tear at the superior bundle insertion of subscapularis. BICEPS: Long head biceps perched medially at the groove entrance. Associated tendinosis. LABRUM: No evidence of labral tear. ACROMIOCLAVICULAR: Acromioclavicular joint osteoarthritis. Subacromial spurring and narrowing and moderate bursitis. GLENOHUMERAL: Small joint effusion. No definite full-thickness cartilage loss. BONE MARROW: No suspicious lesion or fracture. Procedure Note Joshua Ga MD - 07/25/2024 [id number] [place] [address] EXAMINATION: MRI RIGHT SHOULDER WITHOUT CONTRAST EXAM DATE: 07/25/2024 2:40 PM REASON FOR EXAM: pain in right shoulder Pain and decreased range of motion COMPARISON: None TECHNIQUE: Multisequence multiplanar imaging of the shoulder withoutintravenous contrast. FINDINGS: Moderate soft tissue swelling surrounding the joint. ROTATOR CUFF: Mild supraspinatus and infraspinatus atrophy. Full-thickness tear at the insertion of supraspinatus measures 14 mm in APdimension, 13 mm of retraction. This communicates with a partial articular sided tear of posteriorinfraspinatus insertion which measures 7 mm in AP dimension, 14 mm medialto lateral, and involves approximately 50% tendon thickness. Small partial tear at the superior bundle insertion of subscapularis. BICEPS: Long head biceps perched medially at the groove entrance. Associatedtendinosis. LABRUM: No evidence of labral tear. ACROMIOCLAVICULAR: Acromioclavicular joint osteoarthritis. Subacromial spurring and narrowingand moderate bursitis. GLENOHUMERAL: Small joint effusion. No definite full-thickness cartilage loss. BONE MARROW: No suspicious lesion or fracture. IMPRESSION: Full-thickness tear at the insertion of supraspinatus measures 14 mm in APdimension, 13 mm of retraction. This communicates with a partial articular sided tear of posteriorinfraspinatus insertion which measures 7 x 4 mm, and involvesapproximately 50% tendon thickness. Small partial tear at the superior bundle insertion of subscapularis. Longhead biceps perched medially at the groove entrance. Associatedtendinosis. Findings concerning for subacromial impingement, including spurring andnarrowing and moderate bursitis. Mild supraspinatus and infraspinatus atrophy. Ordered By: GREG SEN Interpreted By: Joshua Ga, 07/25/2024 3:20 PM Greg Sen SIEBEL DEVELOPER MRI Final Result from Last 3 Months Insurance [facility] [address] Care Teams Vault Service Mechanic Relationship Specialty Start Date End Date Greg Sen FNP [facility] [facility] [place] [address] PCP - General Nurse Practitioner Family 06/26/24
--- OUTSIDE RECORDS SUMMARY | 2024-08-07 14:44 | XMS_ITS | Encounter Summary ---
Author Organization [facility] Address [address] [facility] Attn: [place] [address] Care Team Providers Care Forest Fire Specialist Supervisor Name Role Phone Unavailable Primary Care Provider Unavailabl e Encounter Details Date Type Department Care Team (Late st Contact Info) Description 12/10/1990 Outpatient Historical Roel Medrano MD [address] [facility] [address] [place] [address] Social History Tobacco Use Types Packs/Day Years Used Date Smoking Tobacco: Never Assessed Sex and Gender Information Value Date Recorded Sex Assigned at Not on file Legal Sex Male 5:24 AM PLANT MAINTENANCE MECHANIC Gender Identity Not on file Sexual Orientation Not on file documented as of this encounter Plan of Treatment Not on file documented as of this encounter Visit Diagnoses Not on filedocumented in this encounter
--- OUTSIDE RECORDS SUMMARY | 2024-08-07 14:44 | XMS_ITS | Encounter Summary ---
Author Organization [employer] Address [address] [place] [address] Care Team Providers Care Kettle Loader Name Role Phone Unavailable Primary Care Provider Unavailabl e Encounter Details Date Type Department Care Team (Late st Contact Info) Description 03/25/1999 Outpatient Historical [facility] [place] Social History Tobacco Use Types Packs/Day Years Used Date Smoking Tobacco: Never Assessed Sex and Gender Information Value Date Recorded Sex Assigned at Not on file Legal Sex Male 5:24 AM SAFETY CLOTHING AND EQUIPMENT DEVELOPER Gender Identity Not on file Sexual Orientation Not on file documented as of this encounter Plan of Treatment Not on file documented as of this encounter Visit Diagnoses Not on filedocumented in this encounter
--- OUTSIDE RECORDS SUMMARY | 2024-08-07 14:44 | XMS_ITS | Encounter Summary ---
Author Organization [facility] Address [address] [facility] Attn: [place] [address] Care Team Providers Care Hydro Operator Name Role Phone Unavailable Primary Care Provider Unavailabl e Encounter Details Date Type Department Care Team (Late st Contact Info) Description 11/07/1990 Outpatient Historical Roel Medrano MD [address] 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
--- OUTSIDE RECORDS SUMMARY | 2024-08-07 14:44 | XMS_ITS | Continuity of Care Document ---
Author Organization [facility] Address [address] [facility] [address] [place] [address] Phone Care Team Providers Care Process Mechanic Name Role Phone Ryan Urbano DO Unavailable Unavailable Advance Directives Directive Yes / No Effective Date File Name No Information Encounters Encounter Description Practice Location Reason(s) For Visit Diagnoses Date Provider Providers Copied on Encounter [facility], [address], [place], [place], [id number], [place] tel:[phone] [facility] No Information Sundeep Chish[address]m. [address] [place], [address], [place]. tel: [phone] Family History Family Member Type Diagnosis Age At Onset No Information Payers Payer name Insurance type Covered democrat ID Authoriza tion(s) No Information Social History Type Description Quantity Date Captured Comments Sex Male Smoking Status No Information Chief Complaint And Reason For Visit No Information Reason For Referral Reason For Referral No Information History Of Present Illness Encounter Date Complaint History Of Prese nt Illness No Information Functional Status Date Functional Assessmen t No Information Instructions Date Instruction Additional Infor mation No Information Assessments Type Assessment Date No Information Patient Care Teams Name Effective Dates (start - stop) Status Members No Information
--- OUTSIDE RECORDS SUMMARY | 2024-08-07 14:44 | XMS_ITS | Encounter Summary ---
Author Organization [employer] Address [address] [place] [address] Care Team Providers Care Substation Engineer Name Role Phone Unavailable Primary Care Provider Unavailabl e Encounter Details Date Type Department Care Team (Latest Contact Info) Description 01/30/2000 Outpatient Historical [facility] MRI DEPT Roel Medrano MD [address] [facility] 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
--- OUTSIDE RECORDS SUMMARY | 2024-08-07 14:44 | XMS_ITS | Clinical Summary ---
Author Organization [facility] Address [address] [facility] Attn: Epic Prelude ADT [place] [address] Care Team Providers Care Renewable Energy Division Manager Name Role Phone Unavailable Primary Care Provider Unavailabl e Allergies Active Allergy Reactions Criticality Noted Date Comments Penicillins Rash Low 01/07/2024 FLUSHING, TURNS RED Encounters Date Type Department Care Team Description 07/29/2024 External Device Data STL ABSTRACTION Provider, Abstract 05/14/2024 External Device Data STL ABSTRACTION Provider, Abstract from Last 3 Months Immunizations Immunization Administration Dates Next Due (ADACEL/BOOSTRIX)(10 YR UP) TDAP VACCINE, 0.5ML, IM 01/07/2024 Social History Tobacco Use Types Packs/Day Years Used Date Smoking Tobacco: Never Assessed Sex and Gender Information Value Date Recorded Sex Assigned at Not on file 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 Gender Identity Not on file Sexual Orientation Not on file Plan of Treatment Health Maintenance Due Date Last Done Comments COLORECTAL SCREENING 2002 Colorectal Cancer Screening 2002 FIT-DNA Q 3 years 2002 FIT/FOBT Q 1 year 2002 Flex Sig/CT Colonography Q 5 years 2002 PNEUMOCOCCAL VACCINE 65+ YEARS (1 of 1 - PCV) 12/26/19 08 ZOSTER VACCINE (1 of 2) 12/26/2007 INFLUENZA VACCINE (#1) 2024 RSV VACCINE (60+ or ) (1 - 1-dose 75+ series) 2032 DTAP/TDAP/TD VACCINES (2 - Td or Tdap) 01/06/2034 Insurance RX [employer] RX Member Subscriber Plan / Payer (Ef fective 2023-Present) Name:Paul Faith Relation to Subscriber:Self Name:Paul Faith Payer ID:Not on file Group ID:[id number] Type:RX Medicare Part D Address: [place]
== END 2024-08-04 16:20 | disposition home or self-care (01) ==
LOC: ANHLAB 16:21
PROVIDERS: PCP Family Medicine; Visit Provider Orthopaedic Surgery
DX: E11.69 Type 2 diabetes mellitus with other specified complication (principal); E78.5 Hyperlipidemia, unspecified
CPT/HCPCS: 36415; 83036

== ENCOUNTER 2024-10-23 09:30 | Outpatient (RCR) | payer MEDICARE, SELFPAY ==
[2024-08-12 09:30] VITALS: BMI 40.9
[2024-08-12 09:33] VITALS: BMI 40.9
[2024-08-21 09:35] VITALS: BMI 40.4
[2024-08-21 09:38] VITALS: BMI 40.4
[2024-10-23 09:30] VITALS: BMI 40.4
== END 2024-11-10 09:16 | disposition home or self-care (01) ==
LOC: ANHDMC 09:30
PROVIDERS: PCP Family Medicine; Visit Provider Family Medicine
DX: E11.40 Type 2 diabetes mellitus with diabetic neuropathy, unspecified (principal); Z79.4 Long term (current) use of insulin; Z71.3 Dietary counseling and surveillance
CPT/HCPCS: 97802; 97803

== ENCOUNTER 2024-10-30 11:44 | Outpatient (CLI) | payer MEDICARE, SELFPAY ==
--- NOTE | 2024-10-30 11:30 | ECG_ITS ---
Test Date: 2024-10-30 11:58:56 Measurements Intervals [place] Rate: 89 P: 35 FL: 174 QRS: 5 QRSD: 92 T: 48 QT: 343 QTc: 419 Interpretive Statements SINUS RHYTHM LOW QRS VOLTAGE IN PRECORDIAL LEADS BASELINE ARTIFACT- AVR, AVF, V6 BORDERLINE ECG No previous ECG available for comparison Electronically Signed On 10-30-2024 12:00:53 CDT by Juan Barba D.O.
--- OUTSIDE RECORDS SUMMARY | 2024-10-30 12:29 | XMS_ITS | Encounter Summary ---
Author Organization [employer] Address [address] [place] [address] Care Team Providers Care Certification Engineer Name Role Phone Unavailable Primary Care Provider Unavailabl e Encounter Details Date Type Department Care Team (Latest Contact Info) Description 01/30/2000 Outpatient Historical HIS MRI DEPT Roel Medrano MD [address] [facility] 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
--- OUTSIDE RECORDS SUMMARY | 2024-10-30 12:29 | XMS_ITS | Encounter Summary ---
Author Organization [facility] Address [address] [facility] Attn: Epic [place] [address] Care Team Providers Care Sandblasting Supervisor Name Role Phone Unavailable Primary Care Provider Unavailabl e Encounter Details Date Type Department Care Team (Late st Contact Info) Description 12/10/1990 Outpatient Historical Roel Medrano MD [address] [facility] [address] [place] [address] Social History Tobacco Use Types Packs/Day Years Used Date Smoking Tobacco: Never Assessed Sex and Gender Information Value Date Recorded Sex Assigned at Not on file Legal Sex Male 5:24 AM COMMISSARY AGENT Gender Identity Not on file Sexual Orientation Not on file documented as of this encounter Plan of Treatment Not on file documented as of this encounter Visit Diagnoses Not on filedocumented in this encounter
--- OUTSIDE RECORDS SUMMARY | 2024-10-30 12:29 | XMS_ITS | Encounter Summary ---
Author Organization [facility] Address [address] [facility] Attn: Epic [place] [address] Care Team Providers Care Salvage Repairer Name Role Phone Unavailable Primary Care Provider Unavailabl e Encounter Details Date Type Department Care Team (Late st Contact Info) Description 11/07/1991 Outpatient Historical Roel Medrano MD [address] 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
--- OUTSIDE RECORDS SUMMARY | 2024-10-30 12:29 | XMS_ITS | Continuity of Care Document ---
Author Organization [facility] Address [address] [place] [address] [place] [address] Phone Care Team Providers Care Photographic Lithographer Name Role Phone Ryan Urbano DO Unavailable Unavailable Advance Directives Directive Yes / No Effective Date File Name No Information Encounters Encounter Description Practice Location Reason(s) For Visit Diagnoses Date Provider Providers Copied on Encounter [facility]ly [facility], [address], [place], [place], [id number], [place] tel:[phone] [facility] No Information Sundeep Chisholm. [address] [place], [address], [place]. tel: [phone] Family History Family Member Type Diagnosis Age [...]
--- OUTSIDE RECORDS SUMMARY | 2024-10-30 12:29 | XMS_ITS | Encounter Summary ---
Author Organization [facility] Address [address] [facility] Attn: [place] [address] Care Team Providers Care Boat Rental Clerk Name Role Phone Unavailable Primary Care Provider Unavailabl e Encounter Details Date Type Department Care Team (Late st Contact Info) Description 09/26/1993 Outpatient Historical Roel Medrano MD [address] [facility] [address] [place] [address] Social History Tobacco Use Types Packs/Day Years Used Date Smoking Tobacco: Never Assessed Sex and Gender Information Value Date Recorded Sex Assigned at Not on file Legal Sex Male 5:24 AM ALMOND SORTER Gender Identity Not on file Sexual Orientation Not on file documented as of this encounter Plan of Treatment Not on file documented as of this encounter Visit Diagnoses Not on filedocumented in this encounter
--- OUTSIDE RECORDS SUMMARY | 2024-10-30 12:29 | XMS_ITS | Clinical Summary ---
Author Organization [employer] Address [address] [facility] Attn: Epic Prelude ADT SANDY ROACH [address] Care Team Providers Care Low Raw Sugar Cutter Name Role Phone Unavailable Primary Care Provider Unavailabl e Allergies Active Allergy Reactions Criticality Noted Date Comments Penicillins Rash Low 01/07/2024 FLUSHING, TURNS RED Immunizations Immunization Administration Dates Next Due (ADACEL/BOOSTRIX)(10 YR UP) TDAP VACCINE, 0.5ML, IM 01/07/2024 Social History Tobacco Use Types Packs/Day Years Used Date Smoking Tobacco: Never Assessed Sex and Gender Information Value Date Recorded Sex Assigned at Not on file Legal Sex Male 5:24 AM FRETTED STRING INSTRUMENT 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
--- OUTSIDE RECORDS SUMMARY | 2024-10-30 12:29 | XMS_ITS | Encounter Summary ---
Author Organization [facility] Address [address] [facility] Attn: Epic [place] [address] Care Team Providers Care Chha Name Role Phone Unavailable Primary Care Provider Unavailabl e Encounter Details Date Type Department Care Team (Late st Contact Info) Description 02/04/1991 Outpatient Historical Roel Medrano MD [address] [facility] [address] [place] [address] Social History Tobacco Use Types Packs/Day Years Used Date Smoking Tobacco: Never Assessed Sex and Gender Information Value Date Recorded Sex Assigned at Not on file Legal Sex Male 5:24 AM INSTRUCTIONAL TECHNOLOGY FACILITATOR Gender Identity Not on file Sexual Orientation Not on file documented as of this encounter Plan of Treatment Not on file documented as of this encounter Visit Diagnoses Not on filedocumented in this encounter
--- OUTSIDE RECORDS SUMMARY | 2024-10-30 12:29 | XMS_ITS | Clinical Summary ---
Author Organization 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 Gender Identity Not on file Sexual Orientation Not on file Plan of Treatment Health Maintenance Due Date Last Done Comments Colorectal Cancer Screening Colonoscopy (10 Years) 1957 Hepatitis C 12/26/1975 Mammogram Screening 1997 Zoster Vaccines (1 of 2) 12/26/2007 Annual Medicare Wellness Visit 2022 Dexa Scan (General) 2022 Pneumococcal Vaccine: 50+ Years (1 of 1 - PCV) 2022 COVID-19 Vaccine (3 - 2023-2 5 season) 2024 11/02/2020, 10/11/2020 RSV Immunization or 60+ Years (1 - 1-dose 75+ series) 2032 DTaP, Tdap and Td Vaccines ( 2 - Td or Tdap) 01/06/2034 01/07/2024 Meningococcal B Vaccine Aged Out No l onger eligible based on patient's age to complete this topic Meningococcal Vaccine Aged Out No rogelio salas eligible based on patient's age to complete this topic RSV Immunizations Under 20 Months Aged Out No longer eligible b ased on patient's age to complete this topic Insurance [facility] Care Teams Catering Sales Manager Relationship Specialty Start Date End Date Thu Garrett FNP [address] [place] [address] [place] [address] PCP - General Nurse Practitioner Family 06/26/24
--- OUTSIDE RECORDS SUMMARY | 2024-10-30 12:30 | XMS_ITS | Encounter Summary ---
Author Organization [email or web address] Address 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
--- OUTSIDE RECORDS SUMMARY | 2024-10-30 12:30 | XMS_ITS | Encounter Summary ---
Author Organization [facility] Address [address] [facility] Attn: [place] [address] Care Team Providers Care Contact Center Rep Name Role Phone Unavailable Primary Care Provider Unavailabl e Encounter Details Date Type Department Care Team (Late st Contact Info) Description 11/07/1990 Outpatient Historical Roel Medrano MD [address] 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
--- OUTSIDE RECORDS SUMMARY | 2024-10-30 12:30 | XMS_ITS | Encounter Summary ---
Author Organization 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
== END 2024-10-30 11:45 | disposition home or self-care (01) ==
LOC: ANHSURGERY 11:50
PROVIDERS: PCP Family Medicine; Visit Provider Orthopaedic Surgery
DX: I10 Essential (primary) hypertension (principal); Z01.818 Encounter for other preprocedural examination; R94.31 Abnormal electrocardiogram [ECG] [EKG]
CPT/HCPCS: 93005

== ENCOUNTER 2024-12-04 14:23 | Emergency (ER) | payer MEDICARE, SELFPAY ==
--- NOTE | ~2024-12-04 | CT_ITS ---
History: Lower back pain PROCEDURE: CT lumbar spine without intravenous contrast. COMPARISON: Reference is made to a plain film evaluation of the lumbar spine dated 07/24/2023 TECHNIQUE: Multiple contiguous axial images of the lumbar spine were performed without the administration of int ravenous contrast. DLP: 1404 mGy-cm FINDINGS: Straightening of the normal lordotic curvature of the lumbar spine is identified, possibly muscular i n origin. Severe degenerative disease is identified, with osteophyte formation, disc space narrowing, endplate changes and vacuum phenomena. Severe facet arthropathy is also noted. At the level of L1/L2: No significant disc protrusion is identified. At the level of L2/L3: A broad-based disc protrusion is identified with mass effect on both the spina l canal and bilateral neural foramen. Hypertrophy of the ligamentum flavum is also noted, contributing to the degree of spinal stenosis. At the level of L3/L4: A right paracentral disc protrusion is present with mass effect on the spinal canal and right neural foramen. Hypertrophy of the ligamentum flavum is also noted, contributing to t he degree of spinal stenosis. At the level of L4/L5: Is a broad-based disc protrusion with significant mass effect on both the spin al canal and bilateral neural foramen. Hypertrophy of the ligamentum flavum is also noted, contributi ng to the degree of spinal stenosis. The anterior to posterior dimension of the spinal canal at this level is approximately 6 mm. At the level of L5/S1: Is a broad-based disc protrusion with significant mass effect on both the spin al canal and bilateral neural foramen. Hypertrophy of the ligamentum flavum is also noted, contributing to the degree of spinal stenosis. The anterior to posterior dimension of the spinal canal at this level measures 9.7 mm No acute compression fractures are present. No soft tissue abnormality is noted. Impression: Straightening of the normal lordotic curvature of the lumbar spine, likely muscular in origin. Severe degenerative disease causing significant spinal stenosis, most prominent at the level of L4/L5 and L5/S1, as detailed above. No acute compression fracture. Reviewed, dictated and finalized at location A. Impression: Straightening of the normal lordotic curvature of the lumbar spine, likely musc ular in origin. Severe degenerative disease causing significant spinal stenosis, most prominent at the level of L4/L5 and L5/S1, as detailed above. No acute compression fracture.
--- OUTSIDE RECORDS SUMMARY | 2024-12-04 14:27 | XMS_ITS | Clinical Summary ---
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
--- OUTSIDE RECORDS SUMMARY | 2024-12-04 14:27 | XMS_ITS | Encounter Summary ---
Author Organization [facility] Address [address] [facility] Attn: Epic Prel[place] [address] Care Team Providers Care Laundry Room Attendant Name Role Phone Unavailable Primary Care Provider Unavailabl e Encounter Details Date Type Department Care Team (Late st Contact Info) Description 02/04/1991 Outpatient Historical Roel Medrano MD [address] 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
--- OUTSIDE RECORDS SUMMARY | 2024-12-04 14:27 | XMS_ITS | Encounter Summary ---
Author Organization [facility] Address [address] [facility] Attn: [place] [address] Care Team Providers Care Fur Puller Name Role Phone Unavailable Primary Care Provider Unavailabl e Encounter Details Date Type Department Care Team (Late st Contact Info) Description 09/26/1993 Outpatient Historical Roel Medrano MD [address] 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
--- OUTSIDE RECORDS SUMMARY | 2024-12-04 14:27 | XMS_ITS | Encounter Summary ---
Author Organization [employer] Address [address] [place] [address] Care Team Providers Care Banquet Line Cook Name Role Phone Unavailable Primary Care Provider Unavailabl e Encounter Details Date Type Department Care Team (Latest Contact Info) Description 01/30/2000 Outpatient Historical [facility] DE[facility] [address] [facility] 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
--- OUTSIDE RECORDS SUMMARY | 2024-12-04 14:27 | XMS_ITS | Continuity of Care Document ---
Author Organization [facility] Address [address] [place] [address] Juan David [address] [place] [address] Phone Care Team Providers Care Merchandiser Seasonal Name Role Phone Ryan Urbano DO Unavailable Unavailable Advance Directives Directive Yes / No Effective Date File Name No Information Encounters Encounter Description Practice Location Reason(s) For Visit Diagnoses Date Provider Providers Copied on Encounter [facility], [address], [place], [place], [id number], [place] tel:[phone] [facility]3] No Information Sundeep Chisholm. [address] [place], [address], [place]. tel: [phone] Family History Family Member Type Diagnosis Age At Onset No Information Payers Payer name Insurance type Covered constitution party ID Authoriza tion(s) No Information Social History [...]
--- OUTSIDE RECORDS SUMMARY | 2024-12-04 14:27 | XMS_ITS | Encounter Summary ---
Author Organization [facility] Address [address] [facility] Attn: Epic [place] [address] Care Team Providers Care Qm Nurse Name Role Phone Unavailable Primary Care Provider Unavailabl e Encounter Details Date Type Department Care Team (Late st Contact Info) Description 12/10/1990 Outpatient Historical Roel Medrano MD [address] 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
--- OUTSIDE RECORDS SUMMARY | 2024-12-04 14:27 | XMS_ITS | Encounter Summary ---
Author Organization [employer] Address 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
--- OUTSIDE RECORDS SUMMARY | 2024-12-04 14:27 | XMS_ITS | Encounter Summary ---
Author Organization [facility] Address [address] [facility] Attn: Epic Prel[place] [address] Care Team Providers Care Commercial Property Administrator Name Role Phone Unavailable Primary Care Provider Unavailabl e Encounter Details Date Type Department Care Team (Late st Contact Info) Description 11/07/1991 Outpatient Historical Roel Medrano MD [address] 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
--- OUTSIDE RECORDS SUMMARY | 2024-12-04 14:27 | XMS_ITS | Encounter Summary ---
Author Organization [facility] Address [address] [facility] Attn: Epic [place] [address] Care Team Providers Care Public Health Advisor Name Role Phone Unavailable Primary Care Provider Unavailabl e Encounter Details Date Type Department Care Team (Late st Contact Info) Description 11/07/1990 Outpatient Historical Roel Medrano MD [address] 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
--- OUTSIDE RECORDS SUMMARY | 2024-12-04 14:27 | XMS_ITS | Encounter Summary ---
Author Organization [facility] Address [address] 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
[2024-12-04 14:38] VITALS: BP 134/78; PULSE 97; RESP 16; TEMP 36.4; O2SAT 100
--- NOTE | 2024-12-04 16:05 | ED_ITS ---
HPI - Back Pain/Injury General Chief Complaint: Back Pain/Injury <GEORGE Delgadillo Last Filed: 12/04/24 16:17> Stated Complaint: Lower right back pain x 5 days <GEORGE Delgadillo Filed: 12/04/24 16:17> Time Seen by Provider: 12/04/24 16:06 <GEORGE Delgadillo Last Filed: 12/04/24 16:17> Focused HPI: Patient is a 68 y/o male who presents to the ED with c/o R lower back pain. Patient reports the pain began 4 days ago but was tolerable at first. This morning at work, he bent over doing work and developed worsening pain. Was unable to walk. His coworkers helped him to the car but he was unable to get out of the car. Drove here for further evaluation. Pain worse with any ty pe of movement. Feels muscle spasms. Does radiate down legs. States he has tingling in his legs. Denies numbness. Denies saddle anesthesia. Denies bowel or bladder incontinence. Denies abdominal pain. Takes gabapentin for neuropathy. Took this this morning without relief. Has not taken anything further. GENERAL: Uncomfortable-appearing, obese with BMI of 39.1, and in no acute distress. HEAD: Normocephalic, atraumatic. CHEST: Clear to auscultation. ?No respiratory distress. HEART: Regular rate and rhythm.? MSK: Diffuse tenderness in R lumbosacral region. No significant tenderness in midline lumbar region. Positive SLR on R. Sensation intact throughout extremities. NEURO: ?Alert and oriented x3. Patient screened in triage and initial orders placed.? ?Additional care and disposition to be based upon?diagnostic testing and treatment. <GEORGE Delgadillo Last Filed: 12/04/24 16:17> Source: patient <GEORGE Delgadillo Filed: 12/04/24 16:17> Mode of arrival: wheelchair <GEORGE Delgadillo Filed: 12/04/24 16:17> Limitations: no limitations <GEORGE Delgadillo Last Filed: 12/04/24 16:17> History of Present Illness HPI Narrative: as per MSE above <Javy Hope III, DO - Last Filed: 12/04/24 19:13> Related Data Home Medications: Home Medications ?Medication ?Instructions ?Recorded ?Confirmed ?Last Taken ?Type gabapentin 300 mg capsule 300 mg PO QID PRN pain 05/12/24 11/19/24 Unknown History metformin 500 mg tablet,extended 1,000 mg PO BID 11/19/24 11/19/24 Unknown H istory release 24 hr <GEORGE Delgadillo Last Filed: 12/04/24 16:17> Allergies/Adverse Reactions: Allergies Allergy/AdvReac Type Severity Reaction Status Date / Time amoxicillin Allergy Unknown Rash Verified 12/04/24 14:25 Penicillins Allergy Unknown Rash Verified 12/04/24 14:25 hydrocodone AdvReac Intermediate Nausea Verified 12/04/24 14:25 <GEORGE Delgadillo Last Filed: 12/04/24 16:17> Review of Systems Review of Systems: All systems reviewed & are unremarkable except as noted in HPI and below <Javy Hope III, DO - Last Filed: 12/04/24 19:13> PMFSH Past Medical History Medical History: Medical History Restless leg syndrome DOMENIC (obstructive sleep apnea) Vitamin B12 deficiency Degenerative joint disease (DJD) of lumbar spine Family hx of colon cancer Pituitary adenoma H/O small bowel obstruction Essential (primary) hypertension Dyslipidemia Hypogonadism in male Chronic low back pain without sciatica Type 2 diabetes mellitus with hyperglycemia, without long-term current use of insulin <GEORGE Delgadillo Last Filed: 12/04/24 16:17> Family History Family History: Family History Father Colon cancer Other Carcinoma of colon <GEORGE Delgadillo Last Filed: 12/04/24 16:17> Social History Social History: Social History Smoking status: Never smoker Second hand tobacco smoke exposure: No Alcohol intake: current Drinks per week: 2 Alcohol use details: consumes 2 Rum drinks weekly Substance use: never Substance use type: does not use Lack of Transportation: No Lack of Food: Never True Current Housing: I Have Housing Concerned About Future Housing: No Difficulty Paying Gas/Electric Bills: No Difficulty Paying for Meds: Decline to Answer Currently 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ion: Decline to Answer Difficulty w/ Childcare or Family Care: No Living arrangements: alone Occupation/Education: retired Gender identity (if verbalized by the patient): Male Sexual Orientation (if Verbalized by the Patient): Straight or Heterosexual Spiritual care concerns: No Agree to blood products: Yes <SHANNON DelgadilloC - Last Filed: 12/04/24 16:17> Exam Const: General: healthy appearing and no acute distress <Javy Ryne Hope III, DO - Last Filed: 12/04/24 19:13> Nutritional Appearance: well nourished <Javy Ryne Hope III, DO - Last Filed: 12/04/24 19:13> Orientation/consciousness: patient oriented x3 <Javy Ryne Hope III, DO - Last Filed: 12/04/24 19:13> Limitations: no limitations <Javy Ryne Hope III, DO - Last Filed: 12/04/24 19:13> Eyes: EOM: EOMs intact bilaterally <Javy Ryne Hope III, DO - Last Filed: 12/04/24 19:13> Resp: Effort & Inspection: normal respiratory effort <Javy Ryne Hope III, DO - Last Filed: 12/04/24 19:13> Auscultation: clear to auscultation bilaterally <Jayv Ryne Hope III, DO - Last Filed: 12/04/24 19:13> Cardio: Rate: regular rate <Javy Ryne Hope III, DO - Last Filed: 12/04/24 19:13> Rhythm: regular rhythm <Javy Ryne Hope III, DO - Last Filed: 12/04/24 19:13> GI: GI Palp: Yes Soft to palpation and No Tenderness to palpation present (GI) <Javy Ryne Hope III, DO - Last Filed: 12/04/24 19:13> Auscultation: normal bowel sounds <Javy Ryne Hope III, DO - Last Filed: 12/04/24 19:13> Back/Spine/Pelvis: Other: tender low back with area of spasm and tenderness left low lumbar spine <Javy Ryne Hope III, DO - Last Filed: 12/04/24 19:13> Skin: General skin exam: normal color <Javy Ryne Hope III, DO - Last Filed: 12/04/24 19:13> Rashes: no rashes <Javy Ryne Hope III, DO - Last Filed: 12/04/24 19:13> Wounds: no wounds <Javy Ryne Hope III, DO - Last Filed: 12/04/24 19:13> Neuro: General: patient oriented x3, moves all extremities, no focal motor deficits and CN's II-XI intact bilaterally <Javy Ryne Hope III, DO - Last Filed: 12/04/24 19:13> Speech: normal speech <Javy Ryne Hope III, DO - Last Filed: 12/04/24 19:13> Extrem: General: normal to inspection and no clubbing, cyanosis or edema <Javy Ryne Hope III, DO - Last Filed: 12/04/24 19:13> Psych: Mental Status: mental status grossly normal <Javy Ryne Hope III, DO - Last Filed: 12/04/24 19:13> Affect: normal affect <Javy Ryne Hope III, DO - Last Filed: 12/04/24 19:13> Attitude: cooperative <Javy Ryne Hope III, DO - Last Filed: 12/04/24 19:13> Course Vital Signs Vital signs: Vital Signs Temperature 97.6 F 12/04/24 14:38 Pulse Rate 97 12/04/24 14:38 Respiratory Rate 16 12/04/24 14:38 Blood Pressure 134/78 12/04/24 14:38 Pulse Oximetry 100 12/04/24 14:38 Temperature 97.6 F 12/04/24 14:38 Pulse Rate 97 12/04/24 14:38 Respiratory Rate 16 12/04/24 14:38 Blood Pressure 134/78 12/04/24 14:38 Pulse Oximetry 100 12/04/24 14:38 <Radha Wilson PA-C - Last Filed: 12/04/24 16:17> Vital Signs Temperature 97.6 F 12/04/24 14:38 Pulse Rate 97 12/04/24 14:38 Respiratory Rate 16 12/04/24 14:38 Blood Pressure 134/78 12/04/24 14:38 Pulse Oximetry 100 12/04/24 14:38 Temperature 97.6 F 12/04/24 14:38 Pulse Rate 97 12/04/24 14:38 Respiratory Rate 16 12/04/24 14:38 Blood Pressure 134/78 12/04/24 14:38 Pulse Oximetry 100 12/04/24 14:38 <Javy Michele Hope III, DO - Last Filed: 12/04/24 19:13> MDM - Back Pain/Injury MDM Narrative Medical decision making narrative: MSE by DONA in triage. <GEORGE Delgadillo Last Filed: 12/04/24 16:17> MSE by DONA in triage. as per mse. does not seem like cauda equina, could be herniated or bulging disc. CT lumbar spine ordered. Pt does feel better after meds but has not tried to move. Strentgth and sensation in LE grossly intact SLR pos on left. CT shows multi level disc protrusion with mass effect and protrusion into canal and nerve roots worst at l4-5 and l5 s1. discussed findings with Dr Cabrera says likely chronic and can send home on medrol dose pack. will add skelaxin and norco. 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 referred sclerotomal pain <GEORGE Delgadillo Last Filed: 12/04/24 16:17> Patient Disposition: Home <GEORGE Delgadillo Last Filed: 12/04/24 16:17> Condition: Improved <GEORGE Delgadillo Last Filed: 12/04/24 16:17> Instructions: Antibiotic Form, Acute Low Back Pain (ED), Lumbar Radiculopathy (ED) <GEORGE Delgadillo Last Filed: 12/04/24 16:17> Patient Language: Danish <Radha Wilson PA-C - Last Filed: 12/04/24 16:17> Prescriptions: New methylprednisolone [Medrol (Pritesh)] 4 mg tablets,dose pack See Rx Instructions .ROUTE .COMPLEX Qty: 21 0RF Rx Instructions: orally per package directions methocarbamol 500 mg tablet 500 mg PO TID Qty: 30 0RF hydrocodone-acetaminophen 5-325 mg tablet 1 tablet PO Q6H PRN (Reason: pain) Qty: 14 0RF ondansetron 4 mg tablet,disintegrating 4 mg PO Q8H PRN (Reason: nausea and vomiting) Qty: 14 0RF No Action gabapentin 300 mg capsule 300 mg PO QID PRN (Reason: pain) insulin degludec [Tresiba FlexTouch U-200] 200 unit/mL (3 mL) insulin pen 80 unit subcut DAILY Qty: 36 1RF Patient Comments: QAM Mounjaro 7.5 mg/0.5 mL pen injector 7.5 mg subcut WEEKLY Qty: 6 1RF Patient Comments: TUESDAYS Jardiance 25 mg tablet 25 mg PO DAILY Qty: 90 1RF Patient Comments: QAM (DME) Dexcom G7 Sensor Device See Rx Instructions .Route Qty: 4 1RF Rx Instructions: use As directed metformin 500 mg tablet extended release 24 hr 1,000 mg PO BID (DME) OneTouch Ultra Test Strip See Rx Instructions .Route Qty: 100 3RF Rx Instructions: check blood sugars 3 times a day As directed (DME) pen needle, diabetic [1st Tier Unifine Pentips] 31 gauge x 5/16 needle See Rx Instructions .ROUTE .MEDSUPPLY Qty: 100 1RF Rx Instructions: Use with Tresiba (DME) CPAP and supplies See Rx Instructions .Route .MEDSUPPLY Qty: 1 0RF Patient Comments: WAITING FOR NEW CPAP Rx Instructions: As directed Resmed AirSense 11 CPAP at 8 cm H2O, size medium Resmed Mirage Quattro FFM, CPAP filters/tubing and heated humidity. amlodipine 5 mg tablet 5 mg PO DAILY Qty: 100 1RF Patient Comments: HS lisinopril-hydrochlorothiazide 20-25 mg tablet 1 tablet PO DAILY Qty: 100 1RF Patient Comments: QAM (DME) blood-glucose meter [OneTouch Ultra2 Meter] Misc See Rx Instructions .Route Qty: 1 0RF Rx Instructions: As directed (DME) lancets [OneTouch UltraSoft 2 Lancet] 30 gauge misc See Rx Instructions .Route Qty: 100 3RF Rx Instructions: check blood sugars t.i.d. a.c. As directed simvastatin 10 mg tablet 10 mg PO DAILY Qty: 90 2RF <Radha Wilson PA-C - Last Filed: 12/04/24 16:17> Follow-up/Referrals: Adalberto Snell MD [Primary Care Provider] - Krys Cabrera MD [Physician] - <Radha Wilson PA-C - Last Filed: 12/04/24 16:17>
[2024-12-04] MEDS: KETOROLAC (*BKC) 60 MG/2 ML VIAL IM (16:21)
[2024-12-04] MEDS: diazePAM (*CRX) 5 MG TABLET PO (16:22)
[2024-12-04] MEDS: traMADol HCL (*CRX) 50 MG TABLET PO (16:22)
[2024-12-04] MEDS: ACETAMINOPHEN 500 MG TABLET 1000 MG PO (16:22)
--- OUTSIDE RECORDS SUMMARY | 2024-12-04 18:48 | XMS_ITS | Encounter Summary ---
Author Organization [facility] Address [address] [facility] Attn: Epic Prelude [place] [address] Care Team Providers Care Floor Sander Name Role Phone Unavailable Primary Care Provider Unavailabl e Encounter Details Date Type Department Care Team (Late st Contact Info) Description 09/26/1993 Outpatient Historical Roel Medrano MD [address] 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
--- OUTSIDE RECORDS SUMMARY | 2024-12-04 18:48 | XMS_ITS | Continuity of Care Document ---
Author Organization [facility] Address [id number] [place] [address] [place] [address] Phone Care Team Providers Care Forest Ranger Name Role Phone Ryan Urbano DO Unavailable Unavailable Advance Directives Directive Yes / No Effective Date File Name No Information Encounters Encounter Description Practice Location Reason(s) For Visit Diagnoses Date Provider Providers Copied on Encounter [facility], [address], [place], [place], [id number], [place] tel:[phone] [address] [facility] No Information Sundeep Chisholm. [address] [place], [address], [place]. tel: [phone] Family History Family Member Type Diagnosis Age At Onset No Information Payers Payer name Insurance type Covered republican ID Authoriza tion(s) No Information Social History [...]
--- OUTSIDE RECORDS SUMMARY | 2024-12-04 18:48 | XMS_ITS | Encounter Summary ---
Author Organization [facility] Address [address] [facility] Attn: Epic [place] [address] Care Team Providers Care Telemetry Registered Nurse Name Role Phone Unavailable Primary Care Provider Unavailabl e Encounter Details Date Type Department Care Team (Late st Contact Info) Description 12/10/1990 Outpatient Historical Roel Medrano MD [address] 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
--- OUTSIDE RECORDS SUMMARY | 2024-12-04 18:48 | XMS_ITS | Encounter Summary ---
Author Organization [facility] Address [address] [facility] Attn: Epic [place] [address] Care Team Providers Care Lpn Per Diem Name Role Phone Unavailable Primary Care Provider Unavailabl e Encounter Details Date Type Department Care Team (Late st Contact Info) Description 11/07/1990 Outpatient Historical Roel Medrano MD [address] 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
--- OUTSIDE RECORDS SUMMARY | 2024-12-04 18:48 | XMS_ITS | Encounter Summary ---
Author Organization [facility] Address [address] [place] [address] Care Team Providers Care Associate Financial Advisor Name Role Phone Unavailable Primary Care Provider Unavailabl e Encounter Details Date Type Department Care Team (Latest Contact Info) Description 01/30/2000 Outpatient Historical [facility] [address] 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
--- OUTSIDE RECORDS SUMMARY | 2024-12-04 18:48 | XMS_ITS | Clinical Summary ---
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
--- OUTSIDE RECORDS SUMMARY | 2024-12-04 18:48 | XMS_ITS | Encounter Summary ---
Author Organization [facility] Address [address] [facility] Attn: Epic [place] [address] Care Team Providers Care Roller Leveler Name Role Phone Unavailable Primary Care Provider Unavailabl e Encounter Details Date Type Department Care Team (Late st Contact Info) Description 02/04/1991 Outpatient Historical Roel Medrano MD [address] 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
--- OUTSIDE RECORDS SUMMARY | 2024-12-04 18:48 | XMS_ITS | Encounter Summary ---
Author Organization [facility] Address [address] [facility] Attn: [place] [address] Care Team Providers Care Insurance Case Manager Name Role Phone Unavailable Primary Care Provider Unavailabl e Encounter Details Date Type Department Care Team (Late st Contact Info) Description 11/07/1991 Outpatient Historical Roel Medrano MD [address] 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
--- OUTSIDE RECORDS SUMMARY | 2024-12-04 18:48 | XMS_ITS | Encounter Summary ---
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
--- OUTSIDE RECORDS SUMMARY | 2024-12-04 18:48 | XMS_ITS | Encounter Summary ---
Author Organization [facility] Address 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
== END 2024-12-04 18:57 | disposition home or self-care (01) ==
LOC: ANHED 18:46
PROVIDERS: Emergency Provider Emergency Medicine; PCP Family Medicine
DX: M51.362 Other intervertebral disc degeneration, lumbar region with discogenic back pain and lower extremity pain (principal); I10 Essential (primary) hypertension; E53.8 Deficiency of other specified B group vitamins; E78.5 Hyperlipidemia, unspecified; E11.9 Type 2 diabetes mellitus without complications; M47.816 Spondylosis without myelopathy or radiculopathy, lumbar region; G47.33 Obstructive sleep apnea (adult) (pediatric); G25.81 Restless legs syndrome; Z79.85 Long-term (current) use of injectable non-insulin antidiabetic drugs; Z79.4 Long term (current) use of insulin; Z79.84 Long term (current) use of oral hypoglycemic drugs; Z79.899 Other long term (current) drug therapy
CPT/HCPCS: 72131; 96372; 99284; A9270; J1885

== ENCOUNTER 2025-01-01 08:16 | Outpatient (CLI) | payer MEDICARE, SELFPAY ==
--- NOTE | ~2025-01-01 | MR_ITS ---
MRI of the lumbar spine Clinical History: Spinal stenosis Technique: Axial T2-weighted images, and sagittal T1-weighted, T2-weighted, and T2 fat-sat images wer e acquired. Findings: No fracture identified. There is 3 mm retrolisthesis of L3 over L4. No suspicious bone shabbir ow signal abnormality seen. At L1-L2, there is mild degenerative change. There is moderate facet arthropathy. There is mild centr al canal stenosis. Neural foramina are preserved. At L2-L3, there is moderate to advanced degenerative disc narrowing with minimal disc bulge and mild facet arthropathy. No central canal stenosis or neural foraminal narrowing. At L3-L4, there is advanced degenerative disc narrowing. There is disc bulge and facet arthropathy, w hich tissue to severe spinal canal stenosis/thecal sac compression. There is moderate to advanced rig ht neural foraminal narrowing, and mild to moderate left neural foraminal narrowing. At L4-L5, there is advanced degenerative disc narrowing. Disc bulge and advanced facet arthropathy re sult in severe spinal canal stenosis/thecal sac compression. There is severe right neural foraminal n arrowing. Left neural foramen preserved. At L5-S1, there is moderate degenerative distended. Disc bulge and severe facet arthropathy are prese nt, with mild central canal stenosis. There is severe left neural foraminal narrowing, and moderate t o severe right neural foraminal narrowing. Paravertebral soft tissues are unremarkable. Impression: Severe degenerative spondylosis of the lumbar spine, as detailed above, with multilevel severe spinal canal stenosis/thecal sac compression and multilevel severe neural foraminal narrowing. Reviewed, dictated and finalized at [facility]. Impression: Severe degenerative spondylosis of the lumbar spine, as detailed above, with mu ltilevel severe spinal canal stenosis/thecal sac compression and multilevel sev ere neural foraminal narrowing.
== END 2025-01-01 08:17 | disposition home or self-care (01) ==
PROVIDERS: PCP Family Medicine; Visit Provider Nurse Practitioner Adult Health
DX: M48.061 Spinal stenosis, lumbar region without neurogenic claudication (principal); M47.896 Other spondylosis, lumbar region
CPT/HCPCS: 72148

== ENCOUNTER 2025-02-25 10:26 | Outpatient (CLI) | payer MEDICARE, SELFPAY ==
--- OUTSIDE RECORDS SUMMARY | 2025-02-25 10:41 | XMS_ITS | Continuity of Care Document ---
Author Organization [facility] Address [id number] [place] [address] [place] [address] Phone Care Team Providers Care Sander And Buffer Name Role Phone Ryan Urbano DO Unavailable Unavailable Advance Directives Directive Yes / No Effective Date File Name No Information Encounters Encounter Description Practice Location Reason(s) For Visit Diagnoses Date Provider Providers Copied on Encounter [facility], [address], [place], [place], [id number], [place] tel:[phone] [facility] No Information Sundeep Chisholm. [address] [place], [address], [place]. tel: [phone] Family History Family Member Type Diagnosis Age [...]
--- OUTSIDE RECORDS SUMMARY | 2025-02-25 10:42 | XMS_ITS | Encounter Summary ---
Author Organization [facility] Address [address] [facility] Attn: [place] [address] Care Team Providers Care Business Continuity Manager Name Role Phone Unavailable Primary Care Provider Unavailabl e Encounter Details Date Type Department Care Team (Late st Contact Info) Description 09/26/1993 Outpatient Historical Roel Medrano MD [address] 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
--- OUTSIDE RECORDS SUMMARY | 2025-02-25 10:42 | XMS_ITS | Encounter Summary ---
Author Organization [facility] Address [address] [facility] Attn: Epic [place] [address] Care Team Providers Care Personal Driver Name Role Phone Unavailable Primary Care Provider Unavailabl e Encounter Details Date Type Department Care Team (Late st Contact Info) Description 11/07/1991 Outpatient Historical Roel Medrano MD [address] 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
--- OUTSIDE RECORDS SUMMARY | 2025-02-25 10:42 | XMS_ITS | Clinical Summary ---
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
--- OUTSIDE RECORDS SUMMARY | 2025-02-25 10:42 | XMS_ITS | Clinical Summary ---
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 Gender Identity Not on file Sexual Orientation Not on file Plan of Treatment Health Maintenance Due Date Last Done Comments Colorectal Cancer Screening Colonoscopy (10 Years) 1957 Hepatitis C 12/26/1975 Mammogram Screening 1997 Pneumococcal Vaccine: 50+ Years (1 of 1 - PCV) 12/26/2007 Zoster Vaccines (1 of 2) 12/26/2007 Annual Medicare Wellness Visit 2022 Dexa Scan (General) 2022 COVID-19 Vaccine (3 - 2023-2 5 [...] patient's age to complete this topic Insurance [facility] Care Teams Roof Plumber Relationship Specialty Start Date End Date Thu Garrett FNP [address] [place] [address] [address] [place] [address] PCP - General Nurse Practitioner Family 06/26/24
--- OUTSIDE RECORDS SUMMARY | 2025-02-25 10:42 | XMS_ITS | Encounter Summary ---
Author Organization [facility] Address [address] [facility] Attn: Epic Prel[place] [address] Care Team Providers Care Engineering Production Worker Name Role Phone Unavailable Primary Care Provider Unavailabl e Encounter Details Date Type Department Care Team (Late st Contact Info) Description 11/07/1990 Outpatient Historical Roel Medrano MD [address] 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
--- OUTSIDE RECORDS SUMMARY | 2025-02-25 10:42 | XMS_ITS | Encounter Summary ---
Author Organization [employer] Address [address] [place] [address] Care Team Providers Care Scrap Sawyer Name Role Phone Unavailable Primary Care Provider Unavailabl e Encounter Details Date Type Department Care Team (Latest Contact Info) Description 01/30/2000 Outpatient Historical [facility] DEPT Roel Medrano MD 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
--- OUTSIDE RECORDS SUMMARY | 2025-02-25 10:42 | XMS_ITS | Encounter Summary ---
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
--- OUTSIDE RECORDS SUMMARY | 2025-02-25 10:42 | XMS_ITS | Encounter Summary ---
Author Organization [facility] Address [address] [facility] Attn: Epic [place] [address] Care Team Providers Care Radiologic Technologist Chief Name Role Phone Unavailable Primary Care Provider Unavailabl e Encounter Details Date Type Department Care Team (Late st Contact Info) Description 02/04/1991 Outpatient Historical Roel Medrano MD [address] 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
--- OUTSIDE RECORDS SUMMARY | 2025-02-25 10:42 | XMS_ITS | Encounter Summary ---
Author Organization [employer] Address 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
--- OUTSIDE RECORDS SUMMARY | 2025-02-25 10:42 | XMS_ITS | Encounter Summary ---
Author Organization [facility] Address [address] [facility] Attn: Epic Prel[place] [address] Care Team Providers Care Folder Operator Name Role Phone Unavailable Primary Care Provider Unavailabl e Encounter Details Date Type Department Care Team (Late st Contact Info) Description 12/10/1990 Outpatient Historical Roel Medrano MD [address] 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
[2025-02-25 13:24] LABS: Hematocrit 47.3 % (42.0-52.0); Hemoglobin 15.4 g/dL (14.0-18.0); Immature Granulocyte Percent A 0.3 % (0-0.5); Lymphocytes Absolute Auto 3.19 K/mm3 (0.9-3.2); Mean Corpuscular HGB Conc 32.6 g/dl (32-36); Mean Corpuscular Hemoglobin 31.2 pg (26-34); Mean Corpuscular Volume 95.9 fl (80-100); Nucleated Red Blood Cells Absolute Auto 0.000 K/mm3 (0.0-0.012); Nucleated Red Blood Cells Perc 0.0 % (0.0-0.2); Platelet Count Result 280 k/mm3 (150-375); Red Blood Count 4.93 M/mm3 (4.6-6.20); White Blood Count 9.1 K/mm3 (4.5-10.0)
[2025-02-25 13:38] LABS: Alanine Aminotransferase 24 U/L (6-50); Albumin Level 4.6 g/dL (3.5-5.1); Alkaline Phosphatase 52 U/L (38-126); Anion Gap 10 mmol/L (4-12); Aspartate Amino Transferase 38 U/L (17-59); Bilirubin,Total 1.2 mg/dL (0.2-1.3); Blood Urea Nitrogen 18 mg/dL (9-20); Calcium 9.7 mg/dL (8.4-10.2); Carbon Dioxide 24 mmol/L (22-30); Chloride 103 mmol/L (98-107); Cholesterol 175 mg/dL (0-200); Estimated Glomerular Filt Rate > 60; Glucose 121 mg/dL (65-110); HDL Direct 36 mg/dL; Potassium 4.4 mmol/L (3.4-5.0); Sodium 137 mmol/L (137-145); Total Protein 8.3 g/dL (6.3-8.2); Triglycerides 116 mg/dL (<150)
[2025-02-25 14:11] LABS: Thyroid Stimulating Hormone Reflex 1.230 uIU/mL (0.465-4.68)
[2025-02-25 14:13] LABS: Prostate Specific Antigen 1.6 ng/mL (< OR = 4.0)
[2025-02-25 14:34] LABS: Ferritin 63.90 ng/mL (11.1-264)
== END 2025-02-25 10:27 | disposition home or self-care (01) ==
LOC: ANHGOSHLAB 10:26
PROVIDERS: PCP Family Medicine; Visit Provider Family Medicine
DX: E11.40 Type 2 diabetes mellitus with diabetic neuropathy, unspecified (principal); Z79.4 Long term (current) use of insulin; Z00.00 Encounter for general adult medical examination without abnormal findings; E78.5 Hyperlipidemia, unspecified; I10 Essential (primary) hypertension; Z12.5 Encounter for screening for malignant neoplasm of prostate; D64.9 Anemia, unspecified
CPT/HCPCS: 36415; 80053; 80061; 82728; 84153; 84443; 85025; G0103